=== PATIENT | male | born 1935 | race Caucasian/White ===

== ENCOUNTER 2023-07-31 09:09 | Emergency (ER) | payer MEDICARE ==
[~2023-07-31] VITALS: Ht 180.3 cm; Wt 68.0 kg
[2023-07-31 09:10] VITALS: BP_SYST 132; PULSE 54; RESP 19; TEMP 97.4; O2SAT 98
[2023-07-31 09:57] LABS: BASOPHILS % (AUTO) 0.3 % (0.0-2.0); EOSINOPHILS # (AUTO) 0.1 K/uL (0.0-0.4); EOSINOPHILS % (AUTO) 1.1 % (0.0-4.0); HEMATOCRIT 41.1 % (36-54); HEMOGLOBIN 13.9 g/dL (14.0-18.0); LYMPHOCYTES # (AUTO) 0.8 K/uL (1.0-5.5); LYMPHOCYTES % (AUTO) 13.2 % (20.5-51.5); MEAN CORPUSCULAR HEMOGLOBIN 31 pg (27-31); MEAN CORPUSCULAR HGB CONC 34 % (32-36); MEAN CORPUSCULAR VOLUME 92 fL (79.0-98.0); MONOCYTES # (AUTO) 0.5 K/uL (0.0-1.0); MONOCYTES % (AUTO) 7.7 % (1.7-9.3); NEUTROPHILS # (AUTO) 4.8 K/uL (1.8-7.7); NEUTROPHILS % (AUTO) 77.7 % (40.0-70.0); PLATELET COUNT (AUTO) 166 K/uL (130-430); RED BLOOD CELL COUNT(AUTO) 4.47 MIL/uL (4.2-6.2); RED CELL DISTRIBUTION WIDTH 14.6 % (9.0-15.0); WHITE BLOOD COUNT (AUTO) 6.2 K/uL (4.8-10.8)
[2023-07-31 10:19] LABS: ANION GAP 8 (5-15); CALCIUM 9.2 mg/dL (8.4-11.0); CARBON DIOXIDE 28 mmol/L (23-29); CHLORIDE 105 mmol/L (98-107); CREATININE 1.36 mg/dL (0.55-1.30); GLUCOSE 117 mg/dL (74-106); POTASSIUM 4.5 mmol/L (3.5-5.1); SODIUM SERUM 141 mmol/L (136-145); UREA NITROGEN, BLOOD 28 mg/dL (8-21)
[2023-07-31 10:58] VITALS: BP_SYST 129; PULSE 62; RESP 19; TEMP 97.4; O2SAT 98
== END 2023-07-31 10:50 | disposition home or self-care (01) ==
LOC: SED 09:09
DX: R55 Syncope and collapse (principal); R42 Dizziness and giddiness; I10 Essential (primary) hypertension
CPT/HCPCS: 36415; 71045; 80048; 83880; 84484; 85025; 93005; 99285